=== PATIENT | female | born 1960 | race Caucasian/White ===

== ENCOUNTER → 2016-07-27 | Outpatient (CLI) | payer OTHER ==
[~2016-07-27] MED LIST: ACET500C PO; ALLE50TA PO; DICL75TA PO; GABA400C5 PO; GLIP10TA6 PO; LORA10TA PO; METF500T PO; TRIA0.1L TOPICAL; ZIAC106.25 PO
[2016-07-27 10:06] LABS: AUTOMATED NEUTROPHIL # 4.3 TH/MM3 (1.8-7.7); BASOPHIL % 0.5 % (0.0-2.0); EOSINOPHIL # 0.5 TH/MM3 (0-0.4); EOSINOPHIL % 5.8 % (0.0-4.0); HEMATOCRIT 39.4 % (35.0-46.0); HEMO FLAGS DIFF FINAL; LYMPH % 27.4 % (9.0-44.0); LYMPHOCYTE # 2.1 TH/MM3 (1.0-4.8); MEAN CELL VOLUME 91.2 FL (80.0-100.0); MEAN CORPUSCULAR HEMOGLOBIN 30.7 PG (27.0-34.0); MEAN CORPUSCULAR HGB CONC 33.7 % (32.0-36.0); MONO % 10.6 % (0.0-8.0); NEUT % 55.7 % (16.0-70.0); PLATELET COUNT 242 TH/MM3 (150-450); RED BLOOD COUNT 4.32 MIL/MM3 (4.00-5.30); RED CELL DISTRIBUTION WIDTH 13.6 % (11.6-17.2); WHITE BLOOD COUNT 7.8 TH/MM3 (4.0-11.0)
[2016-07-27 10:40] LABS: ALKALINE PHOSPHATASE 71 U/L (45-117); ALT (GPT) 42 U/L (10-53); ANION GAP 9 MEQ/L (5-15); AST (GOT) 27 U/L (15-37); BICARBONATE 26.9 MEQ/L (21.0-32.0); BLOOD UREA NITROGEN 21 MG/DL (7-18); CHLORIDE 100 MEQ/L (98-107); GLOMERULAR FILTRATION RATE 48 ML/MIN (>89); GLUCOSE,FASTING 204 MG/DL (74-99); HDL CHOLESTEROL 46.8 MG/DL (40.0-60.0); LDL CHOLESTEROL 136 MG/DL (0-99); POTASSIUM 4.2 MEQ/L (3.5-5.1); SODIUM (NA) 136 MEQ/L (136-145); TOTAL BILIRUBIN ADULT 0.3 MG/DL (0.2-1.0)
== END ==
LOC: CLAB 09:27
PROVIDERS: ATTEND Nurse Practitioner Family
DX: I10 Essential (primary) hypertension (principal); E66.9 Obesity, unspecified
CPT/HCPCS: 36415; 80053; 80061; 84443; 85025

== ENCOUNTER → 2016-08-02 | Outpatient (CLI) | payer OTHER ==
[2016-08-02 15:34] LABS: ANION GAP 5 MEQ/L (5-15); BICARBONATE 30.5 MEQ/L (21.0-32.0); BLOOD UREA NITROGEN 19 MG/DL (7-18); CHLORIDE 98 MEQ/L (98-107); GLOMERULAR FILTRATION RATE 60 ML/MIN (>89); GLUCOSE,FASTING 240 MG/DL (74-99); POTASSIUM 4.5 MEQ/L (3.5-5.1); SODIUM (NA) 133 MEQ/L (136-145)
[2016-08-02 17:37] LABS: HEMOGLOBIN A1a 1.3 %; HEMOGLOBIN A1b 2.6 %; HEMOGLOBIN Ao 78.3 %; HEMOGLOBIN LA1C 3.2 %; HEMOGLOBIN P3 4.4 %
== END ==
LOC: CLAB 14:39
PROVIDERS: ATTEND Nurse Practitioner Family
DX: R73.01 Impaired fasting glucose (principal); N28.9 Disorder of kidney and ureter, unspecified
CPT/HCPCS: 36415; 80069; 83036

== ENCOUNTER → 2016-12-28 | Outpatient (CLI) | payer OTHER ==
[2016-12-28 10:23] LABS: HDL CHOLESTEROL 115.1 MG/DL (40.0-60.0); LDL CHOLESTEROL 87 MG/DL (0-99)
[2016-12-28 15:45] LABS: HEMOGLOBIN A1a 1.2 %; HEMOGLOBIN A1b 1.5 %; HEMOGLOBIN Ao 83.9 %; HEMOGLOBIN F 0.3 %; HEMOGLOBIN LA1C 2.3 %; HEMOGLOBIN P3 3.8 %
== END ==
LOC: CLAB 09:06
PROVIDERS: ATTEND Nurse Practitioner Family
DX: E78.5 Hyperlipidemia, unspecified (principal); E11.9 Type 2 diabetes mellitus without complications
CPT/HCPCS: 36415; 80061; 83036